=== PATIENT | female | born 1960 | race Two or more races ===

== ENCOUNTER 2019-09-27 15:27 | Emergency (ER) | payer OTHER, MEDICAID ==
[~2019-09-27] VITALS: Ht 157.5 cm; Wt 73.9 kg
[2019-09-27] MEDS: ONDANSETRON 4 MG TAB.RAPDIS SL ONE (16:00)
[2019-09-27] MEDS ORDERED: HYDROCODONE/APAP 5/325MG 1 EACH TABLET ONE (16:05)
[2019-09-27] MEDS ORDERED: ONDANSETRON 4 MG TAB.RAPDIS ONE (16:05)
[2019-09-27] MEDS: HYDROCODONE/APAP 5/325MG 1 EACH TABLET PO ONE (16:12)
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
--- NOTE | 2019-09-27 20:03 | NUR ---
Patient discharged to home in stable condition. Rx and Written and verbal after care instructions given. Patient verbalizes understanding of instruction.
[2019-09-27 20:49] VITALS: BP 137/77
== END 2019-09-27 20:49 | disposition home or self-care (01) ==
LOC: ER 15:33
DX: R07.89 Other chest pain (principal); Z85.3 Personal history of malignant neoplasm of breast; V49.59XA Passenger injured in collision with other motor vehicles in traffic accident, initial encounter; Y93.89 Activity, other specified; Y92.488 Other paved roadways as the place of occurrence of the external cause; Y99.8 Other external cause status
CPT/HCPCS: 71045; 71120; 99283; Q0162